=== PATIENT | female | born 1945 | race Caucasian/White ===

== ENCOUNTER 2019-06-05 21:11 | Emergency (ER) | payer MEDICARE, BC ==
[~2019-06-05] VITALS: Ht 167.6 cm; Wt 61.0 kg
[2019-06-05 21:32] VITALS: BP 114/91
[2019-06-05] MEDS ORDERED: predniSONE 10 MG TABLET PO ONE (22:00)
[2019-06-05] MEDS ORDERED: HYDROcodone/APAP 5/325MG 1 TAB TABLET PO ONE (22:00)
[2019-06-05] MEDS ORDERED: ONDANSETRON ODT 4 MG TAB.RAPDIS PO ONE (22:00)
[2019-06-05] MEDS ORDERED: ONDA4TAB12 PO (22:15)
[2019-06-05] MEDS ORDERED: HYDR-3165 PO (22:15)
[2019-06-05] MEDS ORDERED: MAGNESIUM CITRATE 296 ML SOLUTION. PO ONE (22:15)
[2019-06-05] MEDS ORDERED: predniSONE 10 MG TABLET ONE (22:15)
[2019-06-05] MEDS ORDERED: PRED-220 PO (22:15)
[2019-06-05] MEDS ORDERED: ONDANSETRON ODT 4 MG TAB.RAPDIS ONE (22:15)
[2019-06-05] MEDS ORDERED: HYDROcodone/APAP 5/325MG 1 TAB TABLET ONE (22:16)
--- NOTE | 2019-06-05 22:17 | PHYS DOC ---
Past History Past Medical History: Anxiety, Cancer, High Cholesterol, Hypothyroid Past Surgical History: Cancer Surgery, Other Additional Past Surgical Histo: Right breast Alcohol Use: None Drug Use: None Adult General Chief Complaint Chief Complaint: SHOULDER INJURY HPI HPI 74-year-old female presents with right shoulder pain. She was seen a few days ago for this pain by her primary care physician. She was given tramadol. The patient states this is helped with the pain, but it has caused her to vomit. She has not taken any of it today. Over the last 2 days, the pain has increased. It started as a numbness and a dull sensation, but now is more intense sharp pain in the lateral right shoulder. She cannot fully internally rotate her shoulder without pain. When she went for a walk today she had to hold her arm still because the motion of moving back and forth was painful. She denies any trauma. There is no new injury. She also complains of no bowel movement for 4 days. She has taken Dulcolax without effect. She would like something for her constipation and her pain. Review of Systems Review of Systems Constitutional: Denies fever or chills [] Eyes: Denies change in visual acuity, redness, or eye pain [] HENT: Denies nasal congestion or sore throat [] Respiratory: Denies cough or shortness of breath [] Cardiovascular: No additional information not addressed in HPI [] GI: Denies abdominal pain, nausea, vomiting, bloody stools or diarrhea [] : Denies dysuria or hematuria [] Musculoskeletal: Right shoulder pain[] Integument: Denies rash or skin lesions [] Neurologic: Denies headache, focal weakness or sensory changes [] Endocrine: Denies polyuria or polydipsia [] All other systems were reviewed and found to be within normal limits, except as documented in this note. Current Medications Current Medications Current Medications Medications (Trade) Dose Ordered Sig/Dustin Start Time Stop Time Status Last Admin Dose Admin Acetaminophen/ Hydrocodone Bitart (Lortab 5/325) 1 tab 1X ONCE 06/05/19 22:00 06/05/19 22:01 UNV Ondansetron HCl (Zofran Odt) 4 mg 1X ONCE 06/05/19 22:00 06/05/19 22:01 UNV Prednisone (Prednisone) 50 mg 1X ONCE 06/05/19 22:00 06/05/19 22:01 UNV Physical Exam Physical Exam Constitutional: Well developed, well nourished, no acute distress, non-toxic appearance. [] HENT: Normocephalic, atraumatic, bilateral external ears normal, oropharynx moist, no oral exudates, nose normal. [] Eyes: PERRLA, EOMI, conjunctiva normal, no discharge. [] Neck: Normal range of motion, no tenderness, supple, no stridor. [] Cardiovascular:Heart rate regular rhythm, no murmur [] Lungs & Thorax: Bilateral breath sounds clear to auscultation [] Abdomen: Bowel sounds normal, soft, no tenderness, no masses, no pulsatile masses. [] Skin: Warm, dry, no erythema, no rash. [] Back: No tenderness, no CVA tenderness. [] Extremities: Pain over the supraspinatus of the right shoulder, pain with empty can test[] Neurologic: Alert and oriented X 3, normal motor function, normal sensory function, no focal deficits noted. [] Psychologic: Affect normal, judgement normal, mood normal. [] Current Patient Data Vital Signs Vital Signs Date Time Temp Pulse Resp B/P (MAP) Pulse Ox O2 Delivery O2 Flow Rate FiO2 06/05/19 21:32 97.8 68 18 98 Room Air EKG EKG [] Radiology/Procedures Radiology/Procedures [] Course & Med Decision Making Course & Med Decision Making Pertinent Labs and Imaging studies reviewed. (See chart for details) The patient likely has a supraspinatus partial tear or bursitis. I will treat her with prednisone for 4 days. Will give the first dose in the ED. I will also give her [place] 5/325 for her pain and Zofran to prevent or vomiting. We will give her a bottle of magnesium citrate at discharge for constipation. She is stable for discharge at this time. [] Dragon Disclaimer Dragon Disclaimer This electronic medical record was generated, in whole or in part, using a voice recognition dictation system. Departure Departure: Impression: Primary Impression: Shoulder bursitis Additional Impression: Constipation due to pain medication Disposition: HOME, SELF-CARE Condition: STABLE Referrals: PCP,NO (PCP) Patient Instructions: Bursitis, Mpxw-ro-Mnot, Constipation, Adult, Layc-gm-Gati Scripts Ondansetron (ONDANSETRON ODT) 4 Mg Tab.rapdis 1 TAB PO PRN Q6-8HRS PRN for VOMITING, #16 TAB Prov: LINDA URIBE DO 06/05/19 Hydrocodone Bit/Acetaminophen (NORCO 5-325 TABLET) 1 Each Tablet 1 TAB PO PRN Q6HRS PRN for PAIN, #10 TAB 0 Refills Prov: LINDA URBIE DO 06/05/19 Prednisone (PREDNISONE) 10 Mg Tablet 50 MG PO DAILY for bursitis for 3 Days, #15 TAB Prov: LINDA URIBE DO 06/05/19 Problem Qualifiers Primary Impression: Shoulder bursitis Laterality: right Qualified Codes: M75.51 - Bursitis of right shoulder LINDA URIBE DO Jun 05, 2019 22:16
[2019-06-05] MEDS ORDERED: MAGNESIUM CITRATE 296 ML SOLUTION. ONE (22:20)
== END 2019-06-05 22:25 | disposition home or self-care (01) ==
LOC: ER 21:11
DX: M75.51 Bursitis of right shoulder (principal); K59.03 Drug induced constipation; E78.00 Pure hypercholesterolemia, unspecified; E03.9 Hypothyroidism, unspecified
CPT/HCPCS: 99284; J7512; Q0162

== ENCOUNTER → 2021-01-31 | Outpatient (CLI) | payer MEDICARE, BC ==
[~2021-01-31] MED LIST: HYDR-3165 PO; ONDA4TAB12 PO; PRED-220 PO
--- NOTE | 2021-01-31 13:52 | RAD ---
EXAM: Lumbar spine, 5 views. HISTORY: Pain. COMPARISON: None. FINDINGS: 5 views of the lumbar spine are obtained. There is no listhesis. The vertebral bodies are n ormal in height. There is multilevel endplate remodeling. There is disc space narrowing and facet art hropathy primarily at L5-S1. IMPRESSION: 1. Multilevel degenerative change, primarily at L5-S1. 2. No acute osseous finding. Electronically signed by: Daphne Milan MD (01/31/2021 1:50 PM) [email or web address]
--- NOTE | 2021-01-31 13:54 | RAD ---
EXAM: Left hip, 2 views. HISTORY: Pain. COMPARISON: None. FINDINGS: 2 views of the left hip are obtained. There is no fracture, dislocation or subluxation. The re is degenerative change at the lumbosacral junction. IMPRESSION: No acute osseous finding. Electronically signed by: Daphne Milan MD (01/31/2021 1:51 PM) [email or web address]
== END ==
LOC: RAD 10:52
PROVIDERS: ATTEND Physician Assistant
DX: M54.16 Radiculopathy, lumbar region (principal); M25.552 Pain in left hip
CPT/HCPCS: 72110; 73502

== ENCOUNTER → 2021-07-05 | Outpatient (CLI) | payer MEDICARE, BC ==
--- NOTE | 2021-07-07 11:48 | RAD ---
CT ABDOMEN+PELVIS WO History: Reason: PELVIC PAIN / Spl. Instructions: / History: Technique: Noncontrast examination of the abdomen and pelvis. Coronal and sagittal reconstructions we re performed. Exposure: One or more of the following individualized dose reduction techniques were utilized for thi s examination: 1. Automated exposure control 2. Adjustment of the mA and/or kV according to patient size 3. Use of iterative reconstruction technique. Comparison: None Findings: Lower chest: No consolidation or pleural effusion. Abdomen and pelvis: The liver, spleen, adrenal glands, pancreas and gallbladder are unremarkable. No biliary ductal dilatation. Small left renal cyst measures 1.0 cm. No renal calculus. No hydronephrosis. Decompressed urinary emily dder. Mild colonic diverticulosis. Mild distal colonic and rectal wall thickening. Normal appendix. No evid ence of bowel obstruction. No pathologic lymphadenopathy. No ascites. Left ovarian cystic lesion measures 3.1 x 3.1 cm. Mild atheromatous plaque within the nonaneurysmal a bdominal aorta and branch vessels. Bones: L4 vertebral body hemangioma. Sclerotic lesion within L4 vertebral body, likely bone island. M ultilevel lumbar spondylosis. Impression: 1. Mild distal colonic and rectal wall thickening, may relate to nondistention. Correlate for coliti s. 2. Left ovarian cystic lesion. Recommend ultrasound to further assess. Electronically signed by: Jt Cole DO (07/07/2021 11:46 AM) [facility]
== END ==
LOC: CT 10:24
PROVIDERS: ATTEND Physician Assistant Medical
DX: N28.1 Cyst of kidney, acquired (principal); K57.30 Diverticulosis of large intestine without perforation or abscess without bleeding; N83.8 Other noninflammatory disorders of ovary, fallopian tube and broad ligament; K63.89 Other specified diseases of intestine; G95.89 Other specified diseases of spinal cord; M47.816 Spondylosis without myelopathy or radiculopathy, lumbar region
CPT/HCPCS: 74176

== ENCOUNTER → 2021-10-02 | Outpatient (CLI) | payer MEDICARE, BC ==
--- NOTE | 2021-10-02 13:57 | RAD ---
Ultrasound pelvis complete and transvaginal ultrasound pelvis HISTORY: Left ovarian cyst on CT Sonographic examination of the pelvis is performed with transabdominal and endovaginal technique. Multiple static images were obtained. Ultrasound pelvis complete transabdominal: The uterus is not well seen by transvaginal technique. The right ovary is not visualized. There is a cyst in the left adnexa. Transvaginal ultrasound: The uterus measures 4.6 x 4.0 x 2.2 cm. The myometrial uterus is heterogeneous with calcifications. T he endometrium measures 1 mm in thickness. There is a nabothian cyst in the cervix. The right ovary i s not seen. The left adnexal cyst is again seen. Appears anechoic and has noted color-flow. The left adnexal cyst measures 4.2 x 2.9 x 2.4 cm. The left ovary is not seen. IMPRESSION: Left adnexal cyst. This is presumably of ovarian origin and could be benign or malignant. Recommend c orrelation as CA-125. Recommend gynecologic consultation. Electronically signed by: Al Cruz III, MD (10/02/2021 1:55 PM) [facility]
== END ==
LOC: US 12:38
PROVIDERS: ATTEND Physician Assistant Medical
DX: N83.202 Unspecified ovarian cyst, left side (principal); N88.8 Other specified noninflammatory disorders of cervix uteri
CPT/HCPCS: 76830; 76856